=== PATIENT | male | born 1970 | race Caucasian/White ===

== ENCOUNTER 2022-04-12 05:25 | Day surgery (SDC) | payer OTHER ==
[2022-04-12] VITALS (266 sets, daily range): BP systolic 81–158; BP diastolic 46–90
[~2022-04-12] VITALS: Ht 190.5 cm; Wt 112.6 kg
--- NOTE | 2022-04-12 06:50 | NUR ---
Patient arrived to the [facility] suite, identification and demographics confirmed. Patient to room 10, AAO, ambulatory, vitals obtained, ID/allergy/fall bands placed, changed into hospital gown, RICK hose, and non-slip socks. Procedure and timeline explained for treatment and discharge. All questions answered and the patient presents no concerns at this time.
[2022-04-12 07:25] LABS: BASO% 0.3 % (0-3); EOS% 3.6 % (0-8); HEMATOCRIT 42.3 % (39.0-50.0); HEMOGLOBIN 14.1 g/dl (14.0-18.0); IMMATURE GRANULOCYTES 0.2 % (0.0-5.0); MEAN CELL VOLUME 90.6 fL CALC (80.0-100.0); MEAN CORPUSCULAR HGB 30.2 pG CALC (26.0-32.0); MEAN CORPUSCULAR HGB CONC 33.3 g/dL CAL (32.0-36.0); MONO% 12.8 % (2-13); NEUT# 2.54 thou/uL (1.82-7.42); NEUT% 43.1 % (42-76); RED BLOOD COUNT 4.67 mill/uL (4.70-6.10); RED CELL DISTRI WIDTH 12.7 % (11.5-15.5)
--- NOTE | 2022-04-12 07:32 | NUR ---
Dr. Pizano telephoned with patient intake information including usage, dose, last dose/time taken and initial vital signs. Patient history and allergies reviewed with MD. Orders received for 10 mg PO Valium and 0.1 mg PO Clonidine now. Will reassess per protocol in 1.5 hours and update MD with assessment and vitals.
--- NOTE | 2022-04-12 07:40 | NUR ---
Patient medicated per MD orders. In addition to Clonidine and Valium, patient received 1000 mcg B12 PO, 20 mg Pepcid PO, and Scopolamine TD patch. Medication indication and education provided prior to adminstration.
[2022-04-12 07:52] LABS: ALBUMIN 4.3 g/dL (3.2-5.0); ALKALINE PHOSPHATASE 35 u/l (38-126); ANION GAP 7 (6-22 (CALC)); BILIRUBIN, TOTAL 0.6 mg/dL (0.2-1.3); BUN 21 mg/dL (9-20); BUN/CREATININE RATIO 20 (12-20 (CALC)); CARBON DIOXIDE 31 mmol/l (22-30); CHLORIDE 105 mmol/l (95-108); CREATININE 1.1 mg/dL (0.7-1.3); GFR FOR AFR.AMER. > 60 ML/MIN (>=60 (CALC)); GFR OTHER RACES > 60 ML/MIN (>=60 (CALC)); POTASSIUM 4.4 mmol/l (3.5-5.1); SGOT/AST 30 u/l (17-59); SODIUM 139 mmol/l (137-146); TOTAL PROTEIN 6.8 g/dL (6.3-8.2)
--- NOTE | 2022-04-12 08:15 | NUR ---
Patient resting comfortably in bed. Easily aroused, maintains focus, and drifts back to sleep. No signs of active withdrawal or distress noted at this time. Continuous SPO2, rhythm, and respiratory monitoring initiated. IVF @ 250 mL/HR, room air, VSS.
--- NOTE | 2022-04-12 09:10 | NUR ---
MD updated with 1.5 hour reassessment. Patient sleeping and vital signs are within pre-treatment parameters. No additional Clonidine or Valium at this time. Continuous monitoring in place.
--- NOTE | 2022-04-12 09:20 | NUR ---
Patient resting comfortably in bed. Easily aroused, maintains focus, and drifts back to sleep. No signs of withdrawal or distress noted at this time.
[2022-04-12] MEDS ORDERED: ANASTROZOLE1 MG PO (09:38)
--- NOTE | 2022-04-12 10:40 | NUR ---
Patient resting comfortably in bed. Easily aroused, maintains focus, and drifts back to sleep. No signs of withdrawal or distress noted at this time.
--- NOTE | 2022-04-12 11:37 | NUR ---
Induction Note Patient to [facility] procedure room 10. Time out performed at 1137, patient placed on telemetry monitor, Angie hugger, and bilateral wrist restraints were applied for ET tube protection. Versed 5mg given IV push at 1138, tourniquet applied to RIGHT arm, lidocaine 100 mg IVP given at 1150, followed by Rocuronium 10mg IVP at 1151 and held for 45 seconds. Propofol 200 mg IVP given at 1154. Succinylcholine 180 mg IVP at 1154. Smooth intubation with 7.5 ETT @ 23L at 1155. Positive CO2. Positive auscultation for air exchange. Patient placed on ventilator for spontaneous ventilation. Placed on Propofol IV drip at 1155. OG inserted at 1155. Positive air on auscultation. Positive gastric content. Stomach washed at this time.
--- NOTE | 2022-04-12 12:25 | NUR ---
OG close note Stomach washed at this time. Naltrexone 50 mg with Clonidine 0.1 mg via OG tube. OG will be clamped for 45 minutes.
--- NOTE | 2022-04-12 13:10 | NUR ---
OG open note OG open at this time. Gastric content draining into drainage bag. OG to drain for 45 minutes. Propofol will be titrated down based on patient.
--- NOTE | 2022-04-12 14:05 | NUR ---
OG close note Stomach washed at this time. Naltrexone 50 mg with Clonidine 0.2 mg via OG tube. OG will be clamped for 45 minutes.
[2022-04-12] MEDS ORDERED: NALTREXONE50 MG PO (14:13)
[2022-04-12] MEDS ORDERED: KLONOPIN2 MG PO (14:14)
[2022-04-12] MEDS ORDERED: CLONIDINE0.1 MG PO (14:14)
--- NOTE | 2022-04-12 16:10 | NUR ---
OG close note Stomach washed at this time. Naltrexone 50 mg with Clonidine 0.2 mg via OG tube. OG will be clamped for 45 minutes.
--- NOTE | 2022-04-12 16:44 | NUR ---
OG close note Stomach washed at this time. Naltrexone 50 mg with Clonidine 0.1 mg via OG tube. OG will be clamped for 45 minutes.
--- NOTE | 2022-04-12 17:50 | NUR ---
OG close note Stomach washed at this time. Naltrexone 12.5 mg with Clonidine 0.2 mg via OG tube. OG will be clamped for 45 minutes.
--- NOTE | 2022-04-12 20:35 | NUR ---
RECEIVED PATIENT IN ROOM 284. PATIENT RESTLESS, ATTEMPTING TO CLIMB FROM BED. VSS, PATIENT ON 5L/NC. NO DISTRESS NOTED AT THIS TIME. BEDSIDE REPORT RECEIVED FROM CLEVE ALVAREZ. BED IN LOW POSITION, ALARM ACTIVATED.
--- NOTE | 2022-04-12 20:46 | NUR ---
Patient to room 284 in no acute distress. Transfer of care to Medical/Surgical [facility] CLEVE Chairez at bedside. 5L NC placed per orders, IVF to continue at 125 ml/hr. VSS. Patient resting comfortably, no adventitious breath sounds appreciated. Bed alarm set. See chart/EMAR for procedural details and assessments. Handoff of care at the time of this note.
--- NOTE | 2022-04-12 20:55 | NUR ---
PATIENT REMAINS RESTLESS, HALDOL IVP ADMINISTERED.
--- NOTE | 2022-04-12 21:40 | NUR ---
HALDOL EFFECTIVE. PATIENT RESTING QUIETLY EYES CLOSED. NO DISTRESS NOTED. BED IN LOW POSITION, LOCKED; ALARM ACTIVATED.
--- NOTE | 2022-04-13 01:53 | NUR ---
PATIENT AGITATED. MULTIPLE ATTEMPTS TO CLIMB FROM BED. URINAL OFFERED, PATIENT REFUSED AND URINATED IN THE BED. HE THEN BIT THE IV TUBING AND BROKE J-LOOP CONNECTOR. ATIVAN 2MG GIVEN IV. NURSE ATTEMPTED TO ATTACH NEW CONNECTOR, PATIENT THEN TRIED TO BITE HER.
--- NOTE | 2022-04-13 02:40 | NUR ---
PATIENT REMAINS RESTLESS, ATTEMPTS TO PROVIDE COMFORT UNSUCCESSFUL.
--- NOTE | 2022-04-13 03:25 | NUR ---
RESTING QUIETLY EYES CLOSED. BED IN LOW POSITION, ALARM ACTIVATED.
[2022-04-13 03:46] VITALS: BP 137/91
[2022-04-13 06:01] LABS: BASO% 0.1 % (0-3); HEMOGLOBIN 15.4 g/dl (14.0-18.0); IMMATURE GRANULOCYTES 0.1 % (0.0-5.0); LYMPH% 15.9 % (15-41); MEAN CELL VOLUME 88.8 fL CALC (80.0-100.0); MEAN CORPUSCULAR HGB 30.4 pG CALC (26.0-32.0); MEAN CORPUSCULAR HGB CONC 34.2 g/dL CAL (32.0-36.0); MONO% 5.1 % (2-13); NEUT# 6.3 thou/uL (1.82-7.42); NEUT% 78.8 % (42-76); RED BLOOD COUNT 5.07 mill/uL (4.70-6.10); RED CELL DISTRI WIDTH 12.2 % (11.5-15.5)
[2022-04-13 06:28] LABS: ALBUMIN 4.3 g/dL (3.2-5.0); ALKALINE PHOSPHATASE 47 u/l (38-126); ANION GAP 14 (6-22 (CALC)); BILIRUBIN, TOTAL 0.5 mg/dL (0.2-1.3); BUN 13 mg/dL (9-20); BUN/CREATININE RATIO 13 (12-20 (CALC)); CHLORIDE 109 mmol/l (95-108); GFR FOR AFR.AMER. > 60 ML/MIN (>=60 (CALC)); GFR OTHER RACES > 60 ML/MIN (>=60 (CALC)); MAGNESIUM 2.4 mg/dL (1.6-2.3); POTASSIUM 4.5 mmol/l (3.5-5.1); SGOT/AST 34 u/l (17-59); SODIUM 142 mmol/l (137-146); TOTAL PROTEIN 7.1 g/dL (6.3-8.2)
[2022-04-13 06:31] LABS: CARBON DIOXIDE 24 mmol/l (22-30)
[2022-04-13 07:47] VITALS: BP 123/60
--- NOTE | 2022-04-13 08:00 | NUR ---
RECEIVED REPORT FROM ALEX POON 07:00. BEDSIDE REPORT. PATIENT RESTING RESTLESS PLEASANT AT THIS TIME. NO DISTRESS NOTED AT THIS TIME. BED IN LOW POSITION. ALARM ON. SAFETY AND FALL PRECAUTION IN PLACE. CALL LIGHT WITHIN REACH.
--- NOTE | 2022-04-13 10:00 | NUR ---
Stable patient at the time of this note. Resting in bed with closed eyes. Patient takes a bath assisted by Margot PAVON. She monitors herself. patiently observes for changes.
--- NOTE | 2022-04-13 12:13 | NUR ---
PATIENT RESTING IN BED. STABLE AT THIS TIME
--- NOTE | 2022-04-13 16:06 | NUR ---
Discharge instructions given. Patient verbalizes understanding of same. Discharged in stable condition via Wheelchair to Home with staff. All belongings sent with pt.
== END 2022-04-13 16:04 | disposition home or self-care (01) | DRG 897 ==
LOC: ANR 05:25 → MS2 05:25 → ANR 10:00
PROVIDERS: ATTEND Anesthesiology Critical Care Medicine
DX: F11.20 Opioid dependence, uncomplicated (principal)
CPT/HCPCS: J0131; J2060; J2354; J3475